=== PATIENT | male | born 1945 | race Hispanic/Latino ===

== ENCOUNTER 2023-07-01 10:44 | Outpatient (CLI) | payer MEDICARE, OTHER | END 2023-07-01 10:45 | disposition home or self-care (01) | LOC: SCSRAD 10:44 | PROVIDERS: ATTEND Family Medicine | DX: R50.9 Fever, unspecified (principal) | CPT/HCPCS: 71046; 80053; 85025 ==

== ENCOUNTER 2024-06-24 14:23 | Outpatient (CLI) | payer MEDICARE | END 2024-06-24 14:24 | disposition home or self-care (01) | LOC: SCSRAD 14:23 | PROVIDERS: ATTEND Family Medicine | DX: M25.511 Pain in right shoulder (principal); R09.89 Other specified symptoms and signs involving the circulatory and respiratory systems | CPT/HCPCS: 71046 ==

== ENCOUNTER 2024-07-01 10:07 | Outpatient (CLI) | payer OTHER | END 2024-07-01 10:08 | disposition home or self-care (01) | LOC: SCSMRI 10:07 | PROVIDERS: ATTEND Family Medicine | DX: M25.511 Pain in right shoulder (principal); M75.121 Complete rotator cuff tear or rupture of right shoulder, not specified as traumatic; M19.011 Primary osteoarthritis, right shoulder ==

== ENCOUNTER 2025-05-15 10:41 | Outpatient (CLI) | payer OTHER | END 2025-05-15 10:42 | disposition home or self-care (01) | LOC: SCSMRI 10:41 | PROVIDERS: ATTEND Urology | DX: C61 Malignant neoplasm of prostate (principal) | CPT/HCPCS: 72195 ==